=== PATIENT | female | born 1945 | race Caucasian/White ===

== ENCOUNTER → 2016-10-03 | Outpatient (CLI) | payer MEDICARE, OTHER ==
[~2016-10-03] MED LIST: LISINOPRIL10 MG PO; PREVACID 30MG30 M1 PO; SYNTHROID0.1 MG PO
== END ==
LOC: MC.RAD 07:00
DX: Z12.31 Encounter for screening mammogram for malignant neoplasm of breast (principal)
CPT/HCPCS: G0202

== ENCOUNTER 2017-11-08 20:04 | Observation (INO) | payer MEDICARE, OTHER ==
[~2017-11-08] VITALS: Ht 157.5 cm; Wt 89.8 kg
[2017-11-08] MEDS ORDERED: SYNTHROID0.088 MG/T PO (22:22)
[2017-11-08] MEDS ORDERED: MAG-OX 400400 MG/TAB PO (22:23)
[2017-11-08] MEDS ORDERED: ZIAC 5/6.25MG T1 TAB PO (22:23)
[2017-11-08] MEDS ORDERED: ASPIRIN 32325 MG/TAB PO (22:23)
[2017-11-08] MEDS ORDERED: GLUCOPHAGE500 MG/TAB PO (22:24)
[2017-11-08] MEDS ORDERED: MULTI VITAMINS1 TAB PO (22:24)
[2017-11-08] MEDS ORDERED: FISH OIL1000 MG PO (22:24)
[2017-11-08] MEDS ORDERED: NATURAL IRON65 MG PO (22:25)
[2017-11-08] MEDS ORDERED: MASON NATURAL2000 IU PO (22:25)
[2017-11-08 22:56] LABS: BASO # 0.1 (0.0-0.2); BASO % 0.7 % (0.0-2.0); EOS % 0.2 % (0-4.0); GRAN % 66.4 % (42.2-75.2); HEMATOCRIT 45.6 % (37.0-47.0); HEMOGLOBIN 15.5 g/dl (12.5-16.0); LYMPH % 22.6 % (20.0-51.0); MEAN CELL VOLUME 90 fl (80.0-100.0); MEAN CORPUSCULAR HEMOGLOBIN 31 pg (27.0-31.0); MEAN CORPUSCULAR HGB CONC 34 g/dl (33.0-37.0); MEAN PLATELET VOLUME 10.4 fl (7.4-10.4); MONO # 0.9 (0.1-0.6); MONO % 9.8 % (1.7-9.3); PLATELET COUNT 194 K/mm3 (130-400); RED BLOOD COUNT 5.06 M/mm3 (4.10-5.30); REDCELL DISTRIBUTION WIDTH-CV 12.2 % (11.5-14.5)
[2017-11-08 23:01] LABS: INR 1.1 (0.8-3.0); PROTHROMBIN TIME 12.9 SECONDS (9.7-12.8)
[2017-11-08 23:04] LABS: PARTIAL THROMBOPLASTIN TIME 29.9 SECONDS (26.0-37.0)
[2017-11-08 23:10] LABS: ALANINE AMINOTRANSFERASE 39 U/L (9-52); ALBUMIN 4.8 gm/dL (3.5-5.0); ALKALINE PHOSPHATASE 79 U/L (50-136); ANION GAP 12 mmol/L (7-16); AST,SGOT 29 U/L (15-37); BILIRUBIN,TOTAL 0.6 mg/dL (0.0-1.0); BLOOD UREA NITROGEN 15 mg/dL (7-17); C-REACTIVE PROTEIN 8.3 mg/dL (0.0-0.9); CALCIUM 9.8 mg/dL (8.4-10.2); CARBON DIOXIDE 26 mmol/L (22-30); CHLORIDE 102 mmol/L (98-107); CREATININE, serum 0.77 mg/dL (0.52-1.25); GLUCOSE 178 mg/dL (74-106); POTASSIUM 3.8 mmol/L (3.4-5.0); SODIUM 139 mmol/L (137-145); TOTAL PROTEIN 8.1 gm/dL (6.4-8.2)
[2017-11-08 23:18] LABS: TROPONIN-I < 0.012 ng/mL (0.000-0.034)
[2017-11-09 03:19] VITALS: BP 141/79; PULSE 127; TEMP 98.5
[2017-11-09 06:56] LABS: BASO % 0.5 % (0.0-2.0); EOS # 0.1 (0.0-0.7); EOS % 1.7 % (0-4.0); GRAN # 4.3 (1.4-6.5); GRAN % 56.5 % (42.2-75.2); HEMATOCRIT 40.4 % (37.0-47.0); HEMOGLOBIN 13.7 g/dl (12.5-16.0); LYMPH # 2.3 (1.2-3.4); LYMPH % 30.2 % (20.0-51.0); MEAN CELL VOLUME 90 fl (80.0-100.0); MEAN CORPUSCULAR HEMOGLOBIN 31 pg (27.0-31.0); MEAN CORPUSCULAR HGB CONC 34 g/dl (33.0-37.0); MEAN PLATELET VOLUME 11.1 fl (7.4-10.4); MONO # 0.8 (0.1-0.6); PLATELET COUNT 190 K/mm3 (130-400); RED BLOOD COUNT 4.47 M/mm3 (4.10-5.30); REDCELL DISTRIBUTION WIDTH-CV 12.2 % (11.5-14.5)
[2017-11-09 07:15] LABS: ALBUMIN 3.6 gm/dL (3.5-5.0); BILIRUBIN,TOTAL 0.5 mg/dL (0.0-1.0); CALCIUM 8.6 mg/dL (8.4-10.2); CREATININE, serum 0.68 mg/dL (0.52-1.25); POTASSIUM 3.5 mmol/L (3.4-5.0); TOTAL PROTEIN 6.6 gm/dL (6.4-8.2)
[2017-11-09 07:31] VITALS: BP 129/77; PULSE 50; TEMP 97.9
[2017-11-09 11:44] VITALS: BP 130/71; PULSE 64; TEMP 98.5
[2017-11-09 15:26] VITALS: BP 117/51; PULSE 61; TEMP 98.3
[2017-11-09 19:38] VITALS: BP 132/80; PULSE 81; TEMP 97.6
[2017-11-09 23:17] VITALS: BP 129/58; PULSE 58; TEMP 98
[2017-11-10 03:31] VITALS: BP 125/73; PULSE 74; TEMP 97.8
[2017-11-10 07:05] LABS: CALCIUM 8.1 mg/dL (8.4-10.2); CREATININE, serum 0.71 mg/dL (0.52-1.25); POTASSIUM 3.8 mmol/L (3.4-5.0)
[2017-11-10 07:43] VITALS: BP 132/44; PULSE 62; TEMP 97.5
[2017-11-10] MEDS ORDERED: DOXYCYCLINE 10100 MG PO (10:07)
== END 2017-11-10 11:15 | disposition home or self-care (01) ==
LOC: COL.ER 20:04 → MEDICAL 11-09 01:34
PROVIDERS: Emergency Medicine; Nurse Practitioner Family; Physician Assistant
DX: L03.114 Cellulitis of left upper limb (principal); Z90.12 Acquired absence of left breast and nipple; E11.9 Type 2 diabetes mellitus without complications; R06.00 Dyspnea, unspecified; R07.9 Chest pain, unspecified; Z79.84 Long term (current) use of oral hypoglycemic drugs; I10 Essential (primary) hypertension; E03.9 Hypothyroidism, unspecified; Z85.3 Personal history of malignant neoplasm of breast; M81.0 Age-related osteoporosis without current pathological fracture; K21.9 Gastro-esophageal reflux disease without esophagitis; Z85.72 Personal history of non-Hodgkin lymphomas; Z87.891 Personal history of nicotine dependence; Z91.041 Radiographic dye allergy status; Z88.0 Allergy status to penicillin; Z88.8 Allergy status to other drugs, medicaments and biological substances; Z91.048 Other nonmedicinal substance allergy status; Z79.82 Long term (current) use of aspirin
CPT/HCPCS: 99222-AI; G0378; G8978-GP; G8979-GP; J1650; J3370; J7030; J7050; Q9967

== ENCOUNTER → 2017-11-30 | Outpatient (CLI) | payer MEDICARE, OTHER ==
[~2017-11-30] MED LIST changes: +ASPIRIN 32325 MG/TAB PO; +DOXYCYCLINE 10100 MG PO; +FISH OIL1000 MG PO; +GLUCOPHAGE500 MG/TAB PO; +MAG-OX 400400 MG/TAB PO; +MASON NATURAL2000 IU PO; +MULTI VITAMINS1 TAB PO; +NATURAL IRON65 MG PO; +SYNTHROID0.088 MG/T PO; +ZIAC 5/6.25MG T1 TAB PO
== END ==
LOC: MC.RAD 08:26
DX: Z12.31 Encounter for screening mammogram for malignant neoplasm of breast (principal); Z90.13 Acquired absence of bilateral breasts and nipples

== ENCOUNTER 2018-10-05 08:48 | Emergency (ER) | payer MEDICARE, OTHER ==
[~2018-10-05] VITALS: Ht 157.5 cm; Wt 85.9 kg
[2018-10-05 08:49] VITALS: TEMP 98.3
[2018-10-05] MEDS ORDERED: DOXYCYCLINE HY100 MG PO (09:09)
[2018-10-05] MEDS ORDERED: PROAIR HFA0.09 MG/AC IH ×2 (09:13→11:24)
[2018-10-05] MEDS ORDERED: NATURAL FLAX1000 MG PO (09:25)
[2018-10-05] MEDS ORDERED: FERROUSGLUC256MG PO (09:25)
[2018-10-05] MEDS ORDERED: CLEOCIN HC150 MG/CAP PO (09:38)
[2018-10-05 09:45] LABS: BASO # 0.1 (0.0-0.2); BASO % 0.5 % (0.0-2.0); EOS # 0.1 (0.0-0.7); EOS % 0.5 % (0-4.0); GRAN # 7.7 (1.4-6.5); GRAN % 77.5 % (42.2-75.2); LYMPH # 1.2 (1.2-3.4); LYMPH % 11.9 % (20.0-51.0); MEAN CELL VOLUME 89 fl (80.0-100.0); MEAN CORPUSCULAR HEMOGLOBIN 30 pg (27.0-31.0); MEAN CORPUSCULAR HGB CONC 34 g/dl (33.0-37.0); MEAN PLATELET VOLUME 11.1 fl (7.4-10.4); MONO # 0.9 (0.1-0.6); MONO % 9.1 % (1.7-9.3); PLATELET COUNT 158 K/mm3 (130-400); RED BLOOD COUNT 4.61 M/mm3 (4.10-5.30); REDCELL DISTRIBUTION WIDTH-CV 12.3 % (11.5-14.5)
[2018-10-05 09:58] LABS: ALBUMIN 3.8 gm/dL (3.5-5.0); BILIRUBIN,TOTAL 0.3 mg/dL (0.0-1.0); CREATININE, serum 0.7 mg/dL (0.52-1.25); POTASSIUM 4.3 mmol/L (3.4-5.0); TOTAL PROTEIN 6.8 gm/dL (6.4-8.2)
[2018-10-05 12:24] VITALS: BP 123/76; PULSE 76
== END 2018-10-05 12:23 | disposition home or self-care (01) ==
LOC: COL.ER 08:48
PROVIDERS: Emergency Medicine
DX: L03.114 Cellulitis of left upper limb (principal); E11.9 Type 2 diabetes mellitus without complications; I89.0 Lymphedema, not elsewhere classified; Z79.82 Long term (current) use of aspirin; Z79.84 Long term (current) use of oral hypoglycemic drugs
CPT/HCPCS: J3370; J7030; J7050

== ENCOUNTER 2018-12-28 06:44 | Day surgery (SDC) | payer MEDICARE, OTHER ==
[~2018-12-28] VITALS: Ht 157.5 cm; Wt 82.5 kg
[~2018-12-28 06:44] MED LIST changes: +CLEOCIN HC150 MG/CAP PO; +DOXYCYCLINE HY100 MG PO; +FERROUSGLUC256MG PO; +NATURAL FLAX1000 MG PO; +PROAIR HFA0.09 MG/AC IH
[2018-12-28 07:16] VITALS: BP 148/88; PULSE 75; TEMP 98.2
[2018-12-28] MEDS ORDERED: OYSTERCAL-D 5001 TAB PO (07:28)
[2018-12-28] MEDS ORDERED: IRON TABLETS325 MG PO (07:29)
[2018-12-28] MEDS ORDERED: NATURAL FLAX1000 MG PO (07:31)
[2018-12-28] MEDS ORDERED: SYNTHROID0.1 MG/TAB PO (07:32)
[2018-12-28] MEDS ORDERED: FOLIC ACID 11 MG/TA1 PO (07:32)
[2018-12-28] MEDS ORDERED: VITAMINC1000TA PO (07:35)
[2018-12-28 09:00] VITALS: BP 128/70; PULSE 95
--- NOTE | 2018-12-28 09:00 | NUR ---
Patient returns to GI bay 3 per cart and is awake and alert. Transfers from cart to recliner with two person assist. Room air sats 95% and temp 98.9. Denies pain or nausea. IV fluids infusing. Given water and juice to drink. Call light in reach.
[2018-12-28 09:15] VITALS: BP 114/83; PULSE 95
--- NOTE | 2018-12-28 09:15 | NUR ---
Patient is eating muffin and drinking juice. Awaits spouse's return. IV fluids infusing. Allowed to rest.
[2018-12-28 09:30] VITALS: BP 117/66; PULSE 92
--- NOTE | 2018-12-28 09:30 | NUR ---
Tolerated muffin and juice. Offers no complaints of pain or nausea.
--- NOTE | 2018-12-28 09:36 | NUR ---
Dr. Recinos here and talks with the patient.
--- NOTE | 2018-12-28 09:45 | NUR ---
IV out and patient dresses self. Gait steady when up and continues to deny pain or nausea.
--- NOTE | 2018-12-28 09:47 | NUR ---
Patient escorted to the front lobby ambulatory by RN and gait steady. Dismissal instructions were signed and given copy. States her spouse will be here in approximately one hour and wishes to wait in the front lobby. Has glass of water and is on her Ipad.
== END 2018-12-28 09:47 | disposition home or self-care (01) ==
LOC: SDCO 06:44
DX: Z12.11 Encounter for screening for malignant neoplasm of colon (principal); K64.0 First degree hemorrhoids; K57.30 Diverticulosis of large intestine without perforation or abscess without bleeding; E03.9 Hypothyroidism, unspecified; E11.9 Type 2 diabetes mellitus without complications; Z79.84 Long term (current) use of oral hypoglycemic drugs; Z79.899 Other long term (current) drug therapy; Z88.0 Allergy status to penicillin; Z91.041 Radiographic dye allergy status; Z79.82 Long term (current) use of aspirin; Z85.3 Personal history of malignant neoplasm of breast; Z90.12 Acquired absence of left breast and nipple; Z96.651 Presence of right artificial knee joint
CPT/HCPCS: J2250; J3010; J7030

== ENCOUNTER 2019-01-07 17:51 | Emergency (ER) | payer MEDICARE, OTHER ==
[~2019-01-07] VITALS: Ht 157.5 cm; Wt 81.8 kg
[~2019-01-07 17:51] MED LIST changes: +FOLIC ACID 11 MG/TA1 PO; +IRON TABLETS325 MG PO; +OYSTERCAL-D 5001 TAB PO; +SYNTHROID0.1 MG/TAB PO; +VITAMINC1000TA PO
[2019-01-07 18:02] VITALS: BP 152/70; TEMP 98.2
[2019-01-07] MEDS ORDERED: CLEOCIN HCL300 MG PO (19:54)
[2019-01-07 20:05] VITALS: PULSE 71
== END 2019-01-07 20:05 | disposition home or self-care (01) ==
LOC: COL.ER 17:51
DX: L03.114 Cellulitis of left upper limb (principal); R73.03 Prediabetes; Z85.3 Personal history of malignant neoplasm of breast; Z79.82 Long term (current) use of aspirin; Z79.84 Long term (current) use of oral hypoglycemic drugs

== ENCOUNTER → 2019-01-14 | Outpatient (CLI) | payer MEDICARE, OTHER ==
[~2019-01-14] MED LIST changes: +CLEOCIN HCL300 MG PO
== END ==
LOC: MC.RAD 06:48
DX: Z12.31 Encounter for screening mammogram for malignant neoplasm of breast (principal)

== ENCOUNTER → 2019-04-29 | Outpatient (CLI) | payer MEDICARE, OTHER | LOC: DIA.ED 12:24 | DX: E11.9 Type 2 diabetes mellitus without complications (principal); I10 Essential (primary) hypertension; E66.9 Obesity, unspecified | CPT/HCPCS: G0108 ==

== ENCOUNTER → 2019-05-26 | Outpatient (CLI) | payer MEDICARE, OTHER | LOC: DIA.ED 05-25 09:01 | DX: E11.9 Type 2 diabetes mellitus without complications (principal); I10 Essential (primary) hypertension; E66.9 Obesity, unspecified ==

== ENCOUNTER → 2019-07-11 | Outpatient (CLI) | payer MEDICARE, OTHER | LOC: DIA.ED 07-07 14:44 | DX: E11.9 Type 2 diabetes mellitus without complications (principal); I10 Essential (primary) hypertension; E66.9 Obesity, unspecified ==

== ENCOUNTER 2019-07-23 07:53 | Emergency (ER) | payer MEDICARE, OTHER ==
[~2019-07-23] VITALS: Ht 157.5 cm; Wt 80.9 kg
[2019-07-23 08:11] VITALS: BP 122/62; TEMP 97.8
[2019-07-23] MEDS ORDERED: TRIAMC 0.025 80 TOP (08:56)
[2019-07-23] MEDS ORDERED: CLEOCIN HCL300 MG PO (08:56)
[2019-07-23 09:15] VITALS: PULSE 69
[2019-07-23] MEDS ORDERED: GLUCOTROL 5M5 MG/TAB PO (09:27)
== END 2019-07-23 09:15 | disposition home or self-care (01) ==
LOC: COL.ER 07:53
DX: L03.114 Cellulitis of left upper limb (principal); S40.862A Insect bite (nonvenomous) of left upper arm, initial encounter; E11.9 Type 2 diabetes mellitus without complications; Z79.84 Long term (current) use of oral hypoglycemic drugs; Z88.0 Allergy status to penicillin; Z90.89 Acquired absence of other organs; W57.XXXA Bitten or stung by nonvenomous insect and other nonvenomous arthropods, initial encounter

== ENCOUNTER → 2020-03-15 | Outpatient (CLI) | payer MEDICARE, OTHER ==
[~2020-03-15] MED LIST changes: +GLUCOTROL 5M5 MG/TAB PO; +TRIAMC 0.025 80 TOP
== END ==
LOC: MC.RAD 10:24
DX: Z12.31 Encounter for screening mammogram for malignant neoplasm of breast (principal); N64.89 Other specified disorders of breast; Z98.82 Breast implant status; Z98.890 Other specified postprocedural states

== ENCOUNTER 2020-12-04 07:21 | Emergency (ER) | payer MEDICARE, OTHER ==
[~2020-12-04] VITALS: Ht 157.5 cm; Wt 80.9 kg
[2020-12-04 07:42] VITALS: TEMP 98.4
[2020-12-04 08:00] LABS: BASO # 0.1 (0.0-0.2); BASO % 0.9 % (0.0-2.0); EOS # 0.2 (0.0-0.7); EOS % 2.6 % (0-4.0); GRAN # 4.7 (1.4-6.5); GRAN % 61.4 % (42.2-75.2); HEMATOCRIT 40.9 % (37.0-47.0); HEMOGLOBIN 13.8 g/dl (12.5-16.0); LYMPH # 1.9 (1.2-3.4); LYMPH % 24.6 % (20.0-51.0); MEAN CELL VOLUME 89 fl (80.0-100.0); MEAN CORPUSCULAR HEMOGLOBIN 30 pg (27.0-31.0); MEAN CORPUSCULAR HGB CONC 34 g/dl (33.0-37.0); MEAN PLATELET VOLUME 10.6 fl (7.4-10.4); MONO # 0.7 (0.1-0.6); MONO % 9.6 % (1.7-9.3); PLATELET COUNT 209 K/mm3 (130-400); RED BLOOD COUNT 4.62 M/mm3 (4.10-5.30); REDCELL DISTRIBUTION WIDTH-CV 12.8 % (11.5-14.5)
[2020-12-04 08:11] LABS: ALANINE AMINOTRANSFERASE 33 U/L (4-34); ALBUMIN 4.2 gm/dL (3.5-5.0); ALKALINE PHOSPHATASE 61 U/L (50-136); ANION GAP 13 mmol/L (7-16); AST,SGOT 33 U/L (15-37); BILIRUBIN,TOTAL 0.2 mg/dL (0.0-1.0); BLOOD UREA NITROGEN 16 mg/dL (7-17); CALCIUM 9.5 mg/dL (8.4-10.2); CARBON DIOXIDE 21 mmol/L (22-30); CHLORIDE 102 mmol/L (98-107); GLUCOSE 230 mg/dL (74-106); POTASSIUM 4.2 mmol/L (3.4-5.0); SODIUM 136 mmol/L (137-145)
[2020-12-04 08:23] LABS: TROPONIN-I < 0.012 ng/mL (0.000-0.035)
[2020-12-04 12:05] VITALS: BP 119/67; PULSE 71
== END 2020-12-04 12:05 | disposition home or self-care (01) ==
LOC: COL.ER 07:21
PROVIDERS: Emergency Medicine
DX: R07.9 Chest pain, unspecified (principal); R51.9 Headache, unspecified; R42 Dizziness and giddiness; R55 Syncope and collapse; Z88.0 Allergy status to penicillin; Z79.82 Long term (current) use of aspirin; Z79.84 Long term (current) use of oral hypoglycemic drugs; Z87.891 Personal history of nicotine dependence
CPT/HCPCS: J1200; J1885; J2765

== ENCOUNTER 2021-05-30 09:33 | Emergency (ER) | payer MEDICARE, OTHER ==
[~2021-05-30] VITALS: Ht 157.5 cm; Wt 80.0 kg
[2021-05-30 10:11] VITALS: TEMP 99.9
[2021-05-30 12:13] LABS: BASO # 0.1 (0.0-0.2); BASO % 0.4 % (0.0-2.0); GRAN # 12.3 (1.4-6.5); GRAN % 84.1 % (42.2-75.2); HEMATOCRIT 41.7 % (37.0-47.0); HEMOGLOBIN 14.4 g/dl (12.5-16.0); LYMPH # 1.2 (1.2-3.4); LYMPH % 8.5 % (20.0-51.0); MEAN CELL VOLUME 87 fl (80.0-100.0); MEAN CORPUSCULAR HEMOGLOBIN 30 pg (27.0-31.0); MEAN CORPUSCULAR HGB CONC 35 g/dl (33.0-37.0); MEAN PLATELET VOLUME 10.6 fl (7.4-10.4); MONO # 0.9 (0.1-0.6); MONO % 6.2 % (1.7-9.3); PLATELET COUNT 205 K/mm3 (130-400); REDCELL DISTRIBUTION WIDTH-CV 13.3 % (11.5-14.5)
[2021-05-30 12:24] LABS: ALBUMIN 4.3 gm/dL (3.5-5.0); BILIRUBIN,TOTAL 0.6 mg/dL (0.0-1.0); C-REACTIVE PROTEIN 8.9 mg/dL (0.0-0.9); CALCIUM 9.7 mg/dL (8.4-10.2); CREATININE, serum 0.75 (0.52-1.25); POTASSIUM 3.8 mmol/L (3.4-5.0); TOTAL PROTEIN 7.4 gm/dL (6.4-8.2)
[2021-05-30] MEDS ORDERED: CLEOCIN HCL300 MG PO (12:45)
[2021-05-30 12:55] VITALS: BP 123/74; PULSE 82
== END 2021-05-30 12:57 | disposition home or self-care (01) ==
LOC: COL.ER 09:33
PROVIDERS: Nurse Practitioner
DX: L03.114 Cellulitis of left upper limb (principal); I10 Essential (primary) hypertension; Z85.3 Personal history of malignant neoplasm of breast; Z88.0 Allergy status to penicillin; Z87.891 Personal history of nicotine dependence; Z79.899 Other long term (current) drug therapy

== ENCOUNTER → 2022-04-10 | Outpatient (CLI) | payer MEDICARE, OTHER | LOC: MC.RAD 07:53 | DX: Z12.31 Encounter for screening mammogram for malignant neoplasm of breast (principal) ==

== ENCOUNTER 2023-10-06 07:42 | Day surgery (SDC) | payer MEDICARE, OTHER ==
[~2023-10-06] VITALS: Ht 157.5 cm; Wt 75.0 kg
[~2023-10-06 07:42] MED LIST changes: +PROTONIX 40MG T40 MG PO
[2023-10-06] MEDS ORDERED: LEVOXYL0.088 MG PO (08:56)
[2023-10-06] MEDS ORDERED: MAG-OX 400400 MG/TAB PO ×2 (08:58→08:59)
[2023-10-06] MEDS ORDERED: BENTYL 10MG10 MG/CAP PO (09:01)
[2023-10-06 09:48] VITALS: BP 124/74; PULSE 70; TEMP 97.9
[2023-10-06 10:03] VITALS: BP 131/76; PULSE 81
[2023-10-06 10:51] VITALS: BP 139/77; PULSE 65; TEMP 98.9
--- NOTE | 2023-10-06 12:11 | NUR ---
0948 PT RETURNED TO BAY 4 POST PROCEDURE. RECEIVED REPORT FROM LORE LARSON. PT IS ALERT AND ORIENTED, BREATHING EVEN AND UNLABORED, ABLE TO AMBULATE FROM CART TO RECLINER. 0953 PT GIVEN CRANBERRY JUICE AND A BLUEBERRY MUFFIN FOR A PO CHALLENGE. TOLERATED WELL. 1015 PRINTED PHYSICIAN DISCHARGE INSTRUCTIONS AND PATIENT EDUCATIONAL MATERIAL REVIEWED WITH PT. QUESTIONS INVITED AND ANSWERED. DR. CHILD IN ROOM TO DISCUSS FINDINGS AND PLAN. 1035 PT TO LOBBY VIA WHEEL CHAIR FOR RIDE HOME WITH HER IN POV.
== END 2023-10-06 12:19 | disposition home or self-care (01) ==
LOC: SDCO 07:42
DX: R19.4 Change in bowel habit (principal); K64.0 First degree hemorrhoids; K57.30 Diverticulosis of large intestine without perforation or abscess without bleeding; R19.7 Diarrhea, unspecified; R19.5 Other fecal abnormalities; R10.30 Lower abdominal pain, unspecified
CPT/HCPCS: J2704; J7120